=== PATIENT | female | born 1975 | race Native Hawaiian/Other Pacific Islander ===

== ENCOUNTER 2018-03-13 15:42 | Emergency (ER) | payer OTHER ==
[~2018-03-13] VITALS: Ht 167.6 cm; Wt 65.8 kg
[2018-03-13 15:46] VITALS: TEMP 98
[2018-03-13 17:19] LABS: PLATELET COUNT 283 K/uL (152-353)
[2018-03-13 17:29] LABS: POTASSIUM 3.1 mmol/L (3.6-5.2); SODIUM 140 mmol/L (136-145)
[2018-03-13 18:20] VITALS: BP 104/67
== END 2018-03-13 18:20 | disposition home or self-care (01) ==
LOC: ED 15:42
DX: R07.89 Other chest pain (principal); F15.10 Other stimulant abuse, uncomplicated; F11.10 Opioid abuse, uncomplicated
CPT/HCPCS: 36415; 80053; 80307; 81000; 82550; 82553; 84484; 85027; 93005; 99283

== ENCOUNTER 2021-01-26 09:38 | Emergency (ER) | payer OTHER ==
[~2021-01-26] VITALS: Ht 167.6 cm; Wt 65.8 kg
[2021-01-26 09:38] VITALS: BP 94/74; TEMP 98.1
[2021-01-26 11:06] LABS: PLATELET COUNT 223 K/uL (152-353)
[2021-01-26 11:14] LABS: POTASSIUM 4.3 mmol/L (3.6-5.2)
[2021-01-26 11:24] LABS: PARTIAL THROMBOPLASTIN TIME 26.2 SECONDS (24.5-33.6)
== END 2021-01-26 13:50 | disposition short-term general hospital (02) ==
LOC: ED 09:43
PROVIDERS: Emergency Medicine
PROC: 2W3CX1Z Immobilization of Right Lower Arm using Splint (ICD-10-PCS; principal; 2021-01-26)
PROC: 0W9900Z Drainage of Right Pleural Cavity with Drainage Device, Open Approach (ICD-10-PCS; 2021-01-26)
PROC: 0T9B70Z Drainage of Bladder with Drainage Device, Via Natural or Artificial Opening (ICD-10-PCS; 2021-01-26)
DX: S22.43XA Multiple fractures of ribs, bilateral, initial encounter for closed fracture (principal); S27.0XXA Traumatic pneumothorax, initial encounter; S62.101A Fracture of unspecified carpal bone, right wrist, initial encounter for closed fracture; S32.028A Other fracture of second lumbar vertebra, initial encounter for closed fracture; S32.038A Other fracture of third lumbar vertebra, initial encounter for closed fracture; S32.048A Other fracture of fourth lumbar vertebra, initial encounter for closed fracture; R77.8 Other specified abnormalities of plasma proteins; F19.11 Other psychoactive substance abuse, in remission; S01.311A Laceration without foreign body of right ear, initial encounter; S01.111A Laceration without foreign body of right eyelid and periocular area, initial encounter; Z11.52 Encounter for screening for COVID-19; V48.5XXA Car driver injured in noncollision transport accident in traffic accident, initial encounter; Y92.89 Other specified places as the place of occurrence of the external cause
CPT/HCPCS: 36415; 51702; 80053; 80307; 80320; 81000; 81025; 82550; 84484; 85027; 85610; 85730; 87077; 87086; 87088; 87186; 87635; 90715; 93005; 96360; 96375; 96376; 99285; J2270; J2405; U0003

== ENCOUNTER 2021-02-04 17:06 | Emergency (ER) | payer OTHER ==
[~2021-02-04] VITALS: Ht 167.6 cm; Wt 59.0 kg
[2021-02-04 17:06] VITALS: BP 110/58; TEMP 97.9
== END 2021-02-04 18:29 | disposition home or self-care (01) ==
LOC: ED 17:06
DX: R07.89 Other chest pain (principal); M25.531 Pain in right wrist; Z98.890 Other specified postprocedural states; Z53.29 Procedure and treatment not carried out because of patient's decision for other reasons; W18.39XA Other fall on same level, initial encounter; Y92.89 Other specified places as the place of occurrence of the external cause
CPT/HCPCS: 99281